=== PATIENT | female | born 1970 ===

== ENCOUNTER → 2021-06-12 10:24 | Outpatient (CLI) | payer OTHER | END | disposition home or self-care (01) | LOC: LAB 10:24 | PROVIDERS: ATTEND Internal Medicine | DX: D68.8 Other specified coagulation defects (principal); D65 Disseminated intravascular coagulation [defibrination syndrome] ==

== ENCOUNTER 2021-07-24 09:50 | Outpatient (CLI) | payer OTHER | END 2021-07-24 10:00 | disposition home or self-care (01) | LOC: PPH VACUNA 09:50 | PROVIDERS: ATTEND Emergency Medicine Pediatric Emergency Medicine | DX: Z23 Encounter for immunization (principal) ==